=== PATIENT | female | born 1960 | race Caucasian/White ===

== ENCOUNTER 2022-12-21 12:50 | Emergency (ER) | payer OTHER ==
[~2022-12-21] VITALS: Ht 154.9 cm; Wt 90.7 kg
[2022-12-21 12:52] VITALS: BP 133/76; PULSE 79; RESP 16; TEMP 97.8; O2SAT 96
--- NOTE | 2022-12-21 12:57 | NUR ---
pt ambulatory to bed 03
[2022-12-21] MEDS ORDERED: ACET-10509 PO (13:39)
[2022-12-21] MEDS ORDERED: IBUP-1842 PO (13:39)
[2022-12-21] MEDS ORDERED: CAPS1ADH5 TP (13:39)
[2022-12-21] MEDS ORDERED: KETOROLAC 30 MG/ML VIAL IM ONE (13:40)
--- NOTE | 2022-12-21 14:05 | NUR ---
Patient discharged with v/s stable. Written and verbal after care instructions given and explained. Patient alert, oriented and verbalized understanding of instructions. Ambulatory with steady gait. All questions addressed prior to discharge. ID band removed. Patient advised to follow up with PMD. Rx of TYLENOL, SALON PAS PATCHES given. Patient educated on indication of medication including possible reaction and side effects. Opportunity to ask questions provided and answered.
== END 2022-12-21 14:05 | disposition home or self-care (01) ==
LOC: MED 12:50
DX: S16.1XXA Strain of muscle, fascia and tendon at neck level, initial encounter (principal); S70.01XA Contusion of right hip, initial encounter; G44.209 Tension-type headache, unspecified, not intractable; V49.88XA Car occupant (driver) (passenger) injured in other specified transport accidents, initial encounter; Y93.89 Activity, other specified; Y92.89 Other specified places as the place of occurrence of the external cause; Y99.8 Other external cause status
CPT/HCPCS: 96372; 99283; J1885